=== PATIENT | male | born 1970 | race Caucasian/White ===

== ENCOUNTER 2021-02-21 14:32 | Emergency (ER) | payer SELFPAY ==
[2021-02-21] MEDS ORDERED: Ketorolac Tromethamine 30 MG/ML VIAL ONE (15:04)
[2021-02-21] MEDS ORDERED: Ondansetron PF 4 MG/2 ML Vial ONE (15:04)
[2021-02-21] MEDS ORDERED: Sodium Chloride 0.9% 1,000 ML ONE (15:04)
[2021-02-21 15:39] LABS: #Lymphocytes 0.8 thou/uL (1.20-3.40); #Monocytes 0.8 thou/uL (0.11-0.59); #Neutrophils 6.7 thou/uL (1.40-6.50); %Basophils 0.5 % (0.0-1.0); %Eosinophils 0.3 % (0.0-10.0); %Lymphocytes 9.4 % (21.0-51.0); %Monocytes 9.5 % (0.0-10.0); %Neutrophils 80.3 % (42.0-75.0); Hemoglobin 13.2 g/dL (14.0-18.0); Mean Corpuscular HGB CONC 32.4 g/dL (32.0-36.0); Mean Corpuscular Hemoglobin 31.6 pg (27.0-31.0); Mean Corpuscular Volume 97.7 fL (78.0-98.0); Platelet Count 307 thou/uL (130-400); RBC Distribution Width 13.1 % (11.5-14.5); Red Blood Cell (RBC) Count 4.18 mill/uL (4.70-6.10); White Blood Cell (WBC) Count 8.3 thou/uL (4.8-10.8)
[2021-02-21 15:55] LABS: ALT (SGPT) 17 U/L (8-55); AST (SGOT) 17 U/L (5-34); Albumin 4.2 g/dL (3.5-5.0); Alkaline Phosphatase 68 U/L (40-110); Anion Gap 16 mmol/L (10-20); BUN (Urea Nitrogen) 24 mg/dL (8.4-25.7); Bilirubin, Total 0.5 mg/dL (0.2-1.2); Calc. Creatinine Clearance 0 mL/min (70-130); Calcium 10.3 mg/dL (7.8-10.44); Carbon Dioxide 24 mmol/L (22-29); Chloride 99 mmol/L (98-107); Globulin 3.5 g/dL (2.4-3.5); Glucose 89 mg/dL (70-105); Potassium 4.3 mmol/L (3.5-5.1); Protein, Total 7.7 g/dL (6.0-8.3); Sodium 135 mmol/L (136-145)
[2021-02-21] MEDS ORDERED: Sodium Chloride 0.9% 100 ML ONE (16:01)
[2021-02-21] MEDS ORDERED: Sodium Chloride 0.9% 250 ML 250 ML ONE (16:01)
[2021-02-21] MEDS ORDERED: cefTRIAXone\\ROCEPHIN 2 GM VIAL ONE (16:01)
[2021-02-21] MEDS ORDERED: Azithromycin 500 MG VIAL ONE (16:01)
[2021-02-22 15:59] LABS: SARS-CoV-2 PCR by NAA DETECTED (NotDetected)
== END 2021-02-21 18:02 | disposition home or self-care (01) ==
LOC: MADERS 14:32
DX: U07.1 COVID-19 (principal); J15.9 Unspecified bacterial pneumonia; R11.2 Nausea with vomiting, unspecified; M10.9 Gout, unspecified; I10 Essential (primary) hypertension; Z87.891 Personal history of nicotine dependence; Z79.899 Other long term (current) drug therapy
CPT/HCPCS: 36415; 71046; 80053; 85025; 96365; 96366; 96368; 96375; J0456; J0696; J1885; J2405; J3490; J7050; U0003; U0005

== ENCOUNTER 2021-02-23 10:57 | Emergency (ER) | payer SELFPAY ==
[2021-02-23 12:53] LABS: #Monocytes 0.7 thou/uL (0.11-0.59); #Neutrophils 7.9 thou/uL (1.40-6.50); %Basophils 0.5 % (0.0-1.0); %Eosinophils 0.2 % (0.0-10.0); %Lymphocytes 10.3 % (21.0-51.0); %Monocytes 7.6 % (0.0-10.0); %Neutrophils 81.4 % (42.0-75.0); Hemoglobin 13.4 g/dL (14.0-18.0); Mean Corpuscular HGB CONC 32.8 g/dL (32.0-36.0); Mean Corpuscular Hemoglobin 31.9 pg (27.0-31.0); Mean Corpuscular Volume 97.3 fL (78.0-98.0); Mean Platelet Volume 6.5 fL (7.4-10.4); Platelet Count 310 thou/uL (130-400); RBC Distribution Width 13.2 % (11.5-14.5); Red Blood Cell (RBC) Count 4.19 mill/uL (4.70-6.10); White Blood Cell (WBC) Count 9.7 thou/uL (4.8-10.8)
[2021-02-23] MEDS ORDERED: Ondansetron PF 4 MG/2 ML Vial ONE (13:01)
[2021-02-23] MEDS ORDERED: Dextrose 5% in Water 250 ML ONE (13:01)
[2021-02-23] MEDS ORDERED: Dexamethasone 10 MG/ML VIAL ONE (13:01)
[2021-02-23] MEDS ORDERED: Acetaminophen 500 MG TAB ONE (13:01)
[2021-02-23] MEDS ORDERED: Sodium Chloride 0.9% 100 ML ONE (13:01)
[2021-02-23] MEDS ORDERED: Cefepime 2 GM VIAL ONE (13:01)
[2021-02-23] MEDS ORDERED: Verapamil 5 MG/2 ML VIAL ONE (13:01)
[2021-02-23 13:06] LABS: ALT (SGPT) 20 U/L (8-55); AST (SGOT) 25 U/L (5-34); Albumin 4.1 g/dL (3.5-5.0); Alkaline Phosphatase 68 U/L (40-110); Anion Gap 16 mmol/L (10-20); BUN (Urea Nitrogen) 12 mg/dL (8.4-25.7); Base Excess-Venous 2.3 mmol/L (-2.0 to 3.0); Bicarbonate (HCO3v) 28.2 mmol/L (22.0-28.0); Bilirubin, Total 0.6 mg/dL (0.2-1.2); CO2 Tension (PvCO2) 47.8 mmHg (42.0-51.0); Calc. Creatinine Clearance 0 mL/min (70-130); Calcium, Ionized 1.11 mmol/L (1.15-1.33); Carbon Dioxide 28 mmol/L (22-29); Chloride 93 mmol/L (98-107); Globulin 3.6 g/dL (2.4-3.5); Glucose 100 mg/dL (70-105); Hemoglobin - Calc 14.1 g/dL (14.0-18.0); Magnesium 1.7 mg/dL (1.6-2.6); Potassium 4.4 mmol/L (3.5-5.1); Potassium 4.5 mmol/L (3.5-5.1); Protein, Total 7.7 g/dL (6.0-8.3); Sodium 132 mmol/L (138-145); Sodium 133 mmol/L (136-145); T. Carbon Dioxide 29.7 mmol/L (22.0-28.0); vO2 Saturation-calc 75.1 % (60.0-85.0)
== END 2021-02-23 15:30 | disposition short-term general hospital (02) ==
LOC: MADERS 10:57
DX: U07.1 COVID-19 (principal); J12.82 Pneumonia due to coronavirus disease 2019; J96.00 Acute respiratory failure, unspecified whether with hypoxia or hypercapnia; M10.9 Gout, unspecified; I10 Essential (primary) hypertension; Z87.891 Personal history of nicotine dependence; Z91.19 Patient's noncompliance with other medical treatment and regimen
CPT/HCPCS: 36415; 71045; 80053; 82330; 82803; 83605; 83735; 83880; 84484; 85025; 85379; 86140; 87040; 93005; 96365; 96367; 96375; J0692; J1100; J2405; J3370; J3490; J7070; J7620

== ENCOUNTER 2021-03-12 12:07 | Outpatient (CLI) | payer SELFPAY | END 2021-03-12 12:08 | disposition home or self-care (01) | LOC: MADLAB 12:07 → MADRAD 12:08 | PROVIDERS: ATTEND Family Medicine | DX: U07.1 COVID-19 (principal); J12.82 Pneumonia due to coronavirus disease 2019 | CPT/HCPCS: 71046 ==

== ENCOUNTER 2021-08-12 17:25 | Emergency (ER) | payer OTHER, SELFPAY ==
[2021-08-12] MEDS ORDERED: Dexamethasone 10 MG/ML VIAL ONE (18:18)
[2021-08-12] MEDS ORDERED: Cyclobenzaprine 10 MG TAB ONE (18:18)
[2021-08-12] MEDS ORDERED: Acetaminophen 500 MG TAB ONE (18:18)
== END 2021-08-12 18:27 | disposition home or self-care (01) ==
LOC: MADERS 17:25
DX: M54.16 Radiculopathy, lumbar region (principal); I10 Essential (primary) hypertension; Z87.891 Personal history of nicotine dependence; Z79.899 Other long term (current) drug therapy
CPT/HCPCS: 96372; 99283; J1100

== ENCOUNTER 2023-04-02 13:13 | Emergency (ER) | payer SELFPAY ==
[2023-04-02] MEDS ORDERED: Ketorolac Tromethamine 60 MG/2 ML VIAL ONE (15:15)
== END 2023-04-02 15:47 | disposition home or self-care (01) ==
LOC: MADERS 13:13
DX: S39.012A Strain of muscle, fascia and tendon of lower back, initial encounter (principal); I10 Essential (primary) hypertension; M10.9 Gout, unspecified; X50.0XXA Overexertion from strenuous movement or load, initial encounter; Y93.89 Activity, other specified; Z87.891 Personal history of nicotine dependence; Z79.899 Other long term (current) drug therapy
CPT/HCPCS: 96372; 99283; J1885

== ENCOUNTER 2023-07-12 18:13 | Emergency (ER) | payer OTHER, SELFPAY ==
[2023-07-12] MEDS ORDERED: Benzonatate 100 MG CAP ONE (18:40)
[2023-07-12] MEDS ORDERED: Ondansetron ODT 4 MG TAB ONE (18:40)
[2023-07-12] MEDS ORDERED: Albuterol 200 PUFF (6.7GM INHALER) ONE (18:40)
[2023-07-12] MEDS ORDERED: Acetaminophen 500 MG TAB ONE (18:40)
== END 2023-07-12 19:47 | disposition home or self-care (01) ==
LOC: MADERS 18:13
DX: J20.9 Acute bronchitis, unspecified (principal); I10 Essential (primary) hypertension; M10.9 Gout, unspecified; Z87.891 Personal history of nicotine dependence; Z79.899 Other long term (current) drug therapy
CPT/HCPCS: 71046; 87804; Q0162

== ENCOUNTER 2024-01-24 17:31 | Emergency (ER) | payer BC, OTHER ==
[2024-01-24] MEDS ORDERED: predniSONE 20 MG TAB ONE (17:57)
[2024-01-24] MEDS ORDERED: Ibuprofen 800 MG TAB ONE (17:57)
[2024-01-24] MEDS ORDERED: Oxymetazoline HCl 0.05% (30 ML BOT) ONE (17:57)
[2024-01-24] MEDS ORDERED: Benzonatate 100 MG CAP ONE (17:57)
[2024-01-24 18:45] LABS: SARS-CoV-2 E Target Negative; SARS-CoV-2 N2 Target Negative; SARS-CoV-2 NAA Rapid Test Not Detected (NotDetected); SARS-CoV-2 RdRP gene Negative
== END 2024-01-24 18:54 | disposition home or self-care (01) ==
LOC: MADERS 17:31
DX: J06.9 Acute upper respiratory infection, unspecified (principal); I10 Essential (primary) hypertension; Z87.891 Personal history of nicotine dependence; Z79.899 Other long term (current) drug therapy
CPT/HCPCS: 71046; J7512; U0002

== ENCOUNTER 2024-02-05 08:03 | Emergency (ER) | payer OTHER | END 2024-02-05 08:50 | disposition home or self-care (01) | LOC: MADERS 08:03 | DX: M79.604 Pain in right leg (principal); R21 Rash and other nonspecific skin eruption; K59.00 Constipation, unspecified; I10 Essential (primary) hypertension; Z87.891 Personal history of nicotine dependence; Z79.899 Other long term (current) drug therapy | CPT/HCPCS: 99282 ==

== ENCOUNTER 2024-03-12 15:45 | Outpatient (CLI) | payer OTHER | END 2024-03-12 15:46 | disposition home or self-care (01) | LOC: MADRAD 15:45 | PROVIDERS: ATTEND Family Medicine | DX: S69.92XA Unspecified injury of left wrist, hand and finger(s), initial encounter (principal); M19.042 Primary osteoarthritis, left hand; M79.89 Other specified soft tissue disorders ==

== ENCOUNTER 2025-01-14 16:44 | Outpatient (CLI) | payer OTHER ==
[2025-01-14 17:23] LABS: ALT (SGPT) 22 U/L (Less than 45); AST (SGOT) 23 U/L (11-34); Albumin 4.5 g/dL (3.1-4.5); Alkaline Phosphatase 74 U/L (40-110); Anion Gap 17 mmol/L (10-20); BUN (Urea Nitrogen) 22 mg/dL (8.4-25.7); Bilirubin, Total 0.4 mg/dL (0.3-1.2); Calc. Creatinine Clearance 0 mL/min (70-130); Calcium 9.7 mg/dL (7.8-10.44); Carbon Dioxide 24 mmol/L (22-29); Cardiac Risk 5.4 (Less than 4.5); Chloride 104 mmol/L (98-107); Cholesterol 158 mg/dl (< 200 Desired); Globulin 3.1 g/dL (2.4-3.5); Glucose 80 mg/dL (70-105); HDL Cholesterol 29 mg/dL (>60 Neg Risk); Potassium 4.2 mmol/L (3.5-5.1); Sodium 141 mmol/L (136-145); Triglycerides 485 mg/dL (Less than 150)
[2025-01-14 17:36] LABS: Hematocrit 46.7 % (42.0-52.0); Hemoglobin 15.2 g/dL (14.0-18.0); MDiff Complete? YES; Manual Diff?? YES; Mean Corpuscular Hemoglobin 30.9 pg (27.0-31.0); Mean Corpuscular Volume 95.1 fl (78.0-98.0); Platelet Count 302 10x3/uL (130-400); Red Blood Cell (RBC) Count 4.91 mill/uL (4.70-6.10); White Blood Cell (WBC) Count 8.5 10x3/uL (4.8-10.8)
[2025-01-14 17:37] LABS: Platelet Adequacy Comment Appears Adequate
== END 2025-01-14 16:45 | disposition home or self-care (01) ==
LOC: MADLAB 16:44
PROVIDERS: ATTEND Family Medicine
DX: I10 Essential (primary) hypertension (principal); E78.2 Mixed hyperlipidemia
CPT/HCPCS: 36415; 80053; 80061; 85025

== ENCOUNTER 2025-03-05 11:34 | Emergency (ER) | payer OTHER ==
[2025-03-05] MEDS ORDERED: predniSONE 20 MG TAB ONE (12:17)
== END 2025-03-05 12:40 | disposition home or self-care (01) ==
LOC: MADERS 11:34
DX: L03.115 Cellulitis of right lower limb (principal); I10 Essential (primary) hypertension; Z87.891 Personal history of nicotine dependence
CPT/HCPCS: 96372; 99282; J0692; J1885; J7512